=== PATIENT | male | born 1995 | race Caucasian/White ===

== ENCOUNTER 2017-05-31 18:34 | Emergency (ER) | payer MEDICAID ==
[2017-05-31 18:51] VITALS: BP 115/71
--- NOTE | 2017-05-31 19:17 | EDM.PDOC ---
ED HPI GENERAL MEDICAL PROBLEM - General Chief Complaint: Genitourinary Problem Stated Complaint: BELIEVES HE HAS KIDNEY STONES Time Seen by Provider: 05/31/17 18:49 Source of Information: Reports: Patient History Limitations: Reports: No Limitations - History of Present Illness INITIAL COMMENTS - FREE TEXT/NARRATIVE: The patient states that he has had dysuria, a sharp burning sensation when he urinates, for the past 2 days. He developed right lower quadrant abdominal pain around 17:00 this evening. The pain began in his right lower quadrant; it did not migrate there. It is achy in character. If he remains perfectly still, there is no pain, but it develops if he moves. No flank pain. He states that he did not have increased discomfort on the drive to the ED, and my jiggling his gurney does not worsen his pain. No recent fever, nausea, vomiting, constipation , or diarrhea. No prior similar symptoms. The patient has not tried any home remedies. The patient is status post an appendectomy in 2012. The patient's last oral solid intake was around 17:00 this evening. His last oral fluid intake was around 18:30 this evening. The patient does not have a PCP. Treatments COAGULATOR: Reports: Other (see below) Other Treatments COAGULATOR: none Bladder Pain Score (Numeric/FACES): 5 - Related Data Allergies Allergy/AdvReac Type Severity Reaction Status Date / Time No Known Allergies Allergy Verified 03/03/16 00:06 Home Meds: Home Meds . [No Known Home Meds] 05/31/17 [History] Past Medical History Endocrine/Metabolic History: Reports: Obesity/BMI 30+ - Past Surgical History GI Surgical History: Reports: Appendectomy, Other (See Below) (Pyloric stenosis dilatation as an infant) Social & Family History - Family History Family Medical History: Noncontributory - Tobacco Use Smoking Status *Q: Current Every Day Smoker Years of Tobacco use: 5 Packs/Tins Daily: 0.2 - Caffeine Use Caffeine Use: Reports: Coffee - Alcohol Use Days Per Week of Alcohol Use: 0 - Recreational Drug Use Recreational Drug Use: No - Living Situation & Occupation Living situation: Reports: Single ED ROS GENERAL - Review of Systems Review Of Systems: ROS reveals no pertinent complaints other than HPI. ED EXAM, GENERAL - Physical Exam Exam: See Below Exam Limited By: No Limitations General Appearance: Alert, WD/WN, No Apparent Distress Eye Exam: Bilateral Eye: Normal Inspection Ears: Normal External Exam, Hearing Grossly Normal Nose: Normal Inspection, No Blood Throat/Mouth: Normal Inspection, Normal Lips, Normal Voice, No Airway Compromise Head: Atraumatic, Normocephalic Neck: Normal Inspection, Full Range of Motion Respiratory/Chest: No Respiratory Distress, Lungs Clear, Normal Breath Sounds, No Accessory Muscle Use Cardiovascular: Normal Peripheral Pulses, Regular Rate, Rhythm, No Gallop, No JVD, No Murmur, No Rub Peripheral Pulses: 4+: Radial (L), Radial (R) GI/Abdominal: Normal Bowel Sounds, Soft, No Organomegaly, No Distention, No Abnormal Bruit, No Mass, Other (Tenderness in the right lower quadrant only. Nontender elsewhere. Rovsing sign negative. Rodeo Performer sign negative. Psoas sign negative. Heel drop sign negative.) (Male) Exam: Deferred Rectal (Males) Exam: Deferred Back Exam: Normal Inspection, Full Range of Motion. No: CVA Tenderness (L), CVA Tenderness (R) Extremities: Normal Inspection, Normal Range of Motion, No Pedal Edema, Normal Capillary Refill Neurological: Alert, Oriented, Normal Cognition, No Motor/Sensory Deficits Psychiatric: Normal Affect Skin Exam: Warm, Dry, Intact, Normal Color, No Rash Course - Vital Signs Last Recorded V/S: Last Vital Signs Temp 36.8 C 05/31/17 18:48 Pulse 56 L 05/31/17 18:48 Resp 20 05/31/17 18:48 BP 115/71 05/31/17 18:48 Pulse Ox 96 05/31/17 18:48 - Orders/Labs/Meds Labs: Laboratory Tests 05/31/17 Range/Units 18:55 Urine Color Yellow (Yellow) Urine Appearance Clear (Clear) Urine pH 7.0 (5.0-8.0) Ur Specific [place] 1.020 (1.005-1.030) Urine Protein Negative (Negative) Urine Glucose (UA) Negative (Negative) Urine Ketones Negative (Negative) Urine Occult Blood Negative (Negative) Urine Nitrite Negative (Negative) Urine Bilirubin Negative (Negative) Urine Urobilinogen 0.2 (0.2-1.0) Ur Leukocyte Esterase Trace H (Negative) Urine RBC 0-5 (0-5) /hpf Urine WBC 5-10 H (0-5) /hpf Ur Epithelial Cells 0-5 (0-5) /hpf Urine Bacteria Rare (FEW) /hpf Urine Mucus Not seen (FEW) /hpf - Re-Assessments/Exams Free Text/Narrative Re-Assessment/Exam: 05/31/17 19:27 The patient's urinalysis is essentially normal. There is no indication of urinary tract infection, and no blood to suggest a kidney stone. I ordered a urine culture, nevertheless. I offered additional workup, to include blood work and a CT scan, which, if negative, would indicate that the patient's pain is likely musculoskeletal in etiology, but might find the cause of the patient's pain, such as an uncommon presentation of a ureterolith, or perhaps mesenteric appendagitis. The other option would be a [id number] approach. If the patient's pain does not go away but does not get worse, he can follow-up with Dr. Mendez this coming week, and if he gets worse, he can return to the ED for a CT scan at that time. The patient prefers the latter option. Departure - Departure Time of Disposition: 19:29 Disposition: Home, Self-Care 01 Condition: Good Clinical Impression: Abdominal pain of unknown etiology - Discharge Information Referrals: PCP,None [Primary Care Provider] - Tj Mendez MD [Physician] - Forms: ED Department Discharge Additional Instructions: You were seen in the emergency room for painful urination and lower right abdominal pain. Workup in the ER included a urinalysis, which returned normal. You do not have a urinary tract infection, and there is no blood in your urine to suggest a kidney stone. Workup, including blood work and a CT scan of your abdomen and pelvis was offered, but declined. If your symptoms do not improve by next week, follow-up with the surgeon Dr. Tj Mendez. If your symptoms worsen, please return to the ER for further evaluation.
== END 2017-05-31 19:40 | disposition home or self-care (01) ==
LOC: JD.ED 18:34
DX: R10.31 Right lower quadrant pain (principal); F17.210 Nicotine dependence, cigarettes, uncomplicated
CPT/HCPCS: 81001; 87086; 99283

== ENCOUNTER 2018-09-25 12:55 | Emergency (ER) | payer MEDICAID ==
[2018-09-25 13:06] VITALS: BP 125/56
--- NOTE | 2018-09-25 13:13 | EDM.PDOC ---
ED HPI GENERAL MEDICAL PROBLEM - General Chief Complaint: Eye Problems Stated Complaint: FB IN EYE Time Seen by Provider: 09/25/18 13:11 Source of Information: Reports: Patient History Limitations: Reports: No Limitations - History of Present Illness INITIAL COMMENTS - FREE TEXT/NARRATIVE: 23-year-old male presents to the ED with foreign body sensation left eye. He's not sure that he got anything in his eye. He woke up with symptoms this morning but decided to go fishing anyways. He was up in [facility] when the pain in his eye dyspnea progressively worsened to the point that he couldn't keep it open. Therefore go back to [place] for care. 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 Diet is excessive leak tearing. It was not stuck or has not noticed any purulent debris this morning. Onset: Today Onset Date: 09/25/18 Onset Time: 06:30 Duration: Hour(s): (Left eye irritation since he got up this morning.) Location: Reports: Face (Left eye foreign body sensation) Quality: Reports: Ache, Sharp (Especially looking at sunlight), Stabbing ( Excessive tearing), Other Severity: Severe Improves with: Reports: None (8 out of 10) Worsens with: Reports: None. Denies: Movement Context: Denies: Activity, Exercise (A irrigation with fluids did not seem to help), Lifting, Sick Contact, Trauma, Other Associated Symptoms: Denies: No Other Symptoms, Confusion, Chest Pain, Cough, cough w sputum, Diaphoresis, Fever/Chills, Headaches, Loss of Appetite, Malaise Treatments MEDICAL CENTER MANAGER: Reports: Other (see below) (None.) Left Eye Pain Score (Numeric/FACES): 8 - Related Data Allergies Allergy/AdvReac Type Severity Reaction Status Date / Time No Known Allergies Allergy Verified 09/25/18 13:02 Home Meds: Home Meds . [No Known Home Meds] 05/31/17 [History] Past Medical History - Past Health History Medical/Surgical History: Denies Medical/Surgical History Endocrine/Metabolic History: Reports: Obesity/BMI 30+ - Past Surgical History GI Surgical History: Reports: Appendectomy, Other (See Below) Social & Family History - Family History Family Medical History: Noncontributory - Tobacco Use Smoking Status *Q: Never Smoker Second Hand Smoke Exposure: No - Caffeine Use Caffeine Use: Reports: Coffee - Recreational Drug Use Recreational Drug Use: No - Living Situation & Occupation Living situation: Reports: Single ED ROS GENERAL - Review of Systems Review Of Systems: See Below Constitutional: Denies: Fever, Chills, Malaise, Weakness, Fatigue, Decreased Appetite, Weight Loss HEENT: Reports: Eye Pain (Left side) Respiratory: Reports: No Symptoms Cardiovascular: Reports: No Symptoms Endocrine: Reports: No Symptoms GI/Abdominal: Reports: No Symptoms : Reports: No Symptoms Musculoskeletal: Reports: No Symptoms Skin: Reports: No Symptoms Neurological: Reports: No Symptoms Psychiatric: Reports: No Symptoms Hematologic/Lymphatic: Reports: No Symptoms Immunologic: Reports: No Symptoms ED EXAM GENERAL W FULL EYE - Physical Exam Exam: See Below Exam Limited By: No Limitations General Appearance: Alert, WD/WN, Mild Distress Eye Exam: Bilateral Eye: Normal Fundi, PERRL Visual Acuity (R) 20/: 20 Visual Acuity (L) 20/: 25 With Correction: No Eyelids: Left: Foreign Body (Pinpoint 10 form body identified under the lid. It was removed with a recent Q-tip.) Conjunctiva & Sclera: Bilateral: Normal Appearance Cornea Exam: Bilateral: Normal Appearance (Slit-lamp exam reveals no sign of corneal abrasion.) Extraocular Movements: Bilateral: Intact Pupillary Size: Bilateral: 5 mm Pupillary Reaction: Bilateral: Brisk Anterior Chamber: Bilateral: Normal Appearance Course - Vital Signs Last Recorded V/S: Last Vital Signs Temp 36.3 C 09/25/18 13:04 Pulse 68 09/25/18 13:04 Resp 16 09/25/18 13:04 BP 125/56 L 09/25/18 13:04 Pulse Ox 96 09/25/18 13:04 - Radiology Interpretation Free Text/Narrative:: 23-year-old male presents to the ED with foreign body sensation left eye. This was present since he got up this morning. He does remember getting anything in his eye yesterday. He went fishing up in [facility] but as the morning is gone on the pain has worsened. Eyes excessively sensitive to light and is tearing. Examination revealed complete relief of pain after topical proparacaine drops were placed. On inversion of his upper eyelid I found a pinpoint foreign body that was easily removed with a moistened Q-tip. Inspected the rest of the eye with slit-lamp exam and no corneal abrasions were identified. Therefore no further treatment is indicated at this time. Follow-up if not completely back to normal by tomorrow morning. Departure - Departure Time of Disposition: 13:12 Disposition: Home, Self-Care 01 Condition: Fair Clinical Impression: Foreign body of left eyelid - Discharge Information *PRESCRIPTION DRUG MONITORING PROGRAM REVIEWED*: Not Applicable *COPY OF PRESCRIPTION DRUG MONITORING REPORT IN PATIENT [place]INA: Not Applicable Referrals: PCP,None [Primary Care Provider] - Forms: ED Department Discharge Additional Instructions: Evaluation the emergency room today in regards to foreign body sensation left eye since she got up this morning. Foreign body sensation continued to plague you throughout the morning in the eye became even more sensitive to sunlight etc. Examination the ED revealed a pinpoint foreign body up underneath the left eyelid. This was removed with a moistened Q-tip. External exam of the cornea with slit-lamp shows no corneal abrasions. Therefore this time don't require any further therapy. The eye might feel uncomfortable and somewhat sensitive to light for the remainder of the day but should be back to normal by tomorrow.
== END 2018-09-25 13:17 | disposition home or self-care (01) ==
LOC: JD.ED 12:55
DX: T15.12XA Foreign body in conjunctival sac, left eye, initial encounter (principal); W45.8XXA Other foreign body or object entering through skin, initial encounter
CPT/HCPCS: 65205; 65222; 99282; 99283

== ENCOUNTER 2022-02-09 23:22 | Emergency (ER) | payer MEDICAID, OTHER ==
[2022-02-09 23:33] VITALS: BP 119/69; PULSE 56
== END 2022-02-10 03:05 ==
LOC: JD.ED 23:22
DX: Z53.21 Procedure and treatment not carried out due to patient leaving prior to being seen by health care provider (principal)

== ENCOUNTER 2022-07-24 19:47 | Emergency (ER) | payer SELFPAY ==
[2022-07-24] MEDS ORDERED: Fluorescein 1 MG Ophth Strip EYERT ONE (20:12)
[2022-07-24 20:52] VITALS: BP 119/77; PULSE 88
== END 2022-07-24 20:51 | disposition home or self-care (01) ==
LOC: JD.ED 19:47
DX: T15.01XA Foreign body in cornea, right eye, initial encounter (principal); E66.9 Obesity, unspecified; Z68.34 Body mass index [BMI] 34.0-34.9, adult
CPT/HCPCS: 65222; 99282; 99283